=== PATIENT | male | born 1965 | race Caucasian/White ===

== ENCOUNTER 2023-12-16 13:03 | Emergency (ER) | payer MEDICAID ==
[~2023-12-16] VITALS: Ht 177.8 cm; Wt 103.0 kg
[2023-12-16 13:14] VITALS: BP 100/73; RESP 18; TEMP 98.7; O2SAT 98
[2023-12-16 13:19] VITALS: PULSE 85
[2023-12-16] MEDS ORDERED: IBUP-2029 MT (15:08)
== END 2023-12-16 15:49 | disposition home or self-care (01) ==
LOC: ER 13:03
DX: S82.852A Displaced trimalleolar fracture of left lower leg, initial encounter for closed fracture (principal); F41.9 Anxiety disorder, unspecified; F31.9 Bipolar disorder, unspecified; F20.9 Schizophrenia, unspecified; Z98.890 Other specified postprocedural states; X58.XXXA Exposure to other specified factors, initial encounter; Y93.89 Activity, other specified; Y92.89 Other specified places as the place of occurrence of the external cause; Y99.8 Other external cause status
CPT/HCPCS: 29515; 73610; 99283